=== PATIENT | female | born 1970 | race Caucasian/White ===

== ENCOUNTER → 2020-11-08 | Outpatient (CLI) | payer BC ==
[~2020-11-08] MED LIST: CT SWABBABLE VALVE TRANS SET 1 EA INFUS.SET MC ONE; IOHEXOL-300 100 ML VIAL IV ONE; IV NS 0.9% 250 ML IV ONE
[2020-11-08 11:06] LABS: CREATININE 0.8 mg/dL (0.6-1.3)
== END | disposition home or self-care (01) ==
LOC: CT 10:18
PROVIDERS: ATTEND Family Medicine
DX: N20.2 Calculus of kidney with calculus of ureter (principal); K80.20 Calculus of gallbladder without cholecystitis without obstruction; K57.30 Diverticulosis of large intestine without perforation or abscess without bleeding; K42.9 Umbilical hernia without obstruction or gangrene; R16.0 Hepatomegaly, not elsewhere classified; K76.0 Fatty (change of) liver, not elsewhere classified; M47.819 Spondylosis without myelopathy or radiculopathy, site unspecified
CPT/HCPCS: 36415; 74178; 82565; 84520; J7050; Q9967

== ENCOUNTER 2020-12-30 10:50 | Outpatient (CLI) | payer BC ==
[2020-12-30] MEDS ORDERED: GADOTERATE MEGLUMINE 10 MMOL/20 ML VIAL IV ONE (10:51)
[2020-12-30 12:36] LABS: BASOPHILS % (AUTO) 0.2 % (0.0-2.0); EOSINOPHILS % (AUTO) 2.7 % (0.0-6.0); HEMATOCRIT 43 % (33-45); HEMOGLOBIN 14.4 g/dL (11.5-14.8); LYMPHOCYTES # (AUTO) 3.8 K/uL (0.8-4.8); LYMPHOCYTES % (AUTO) 35.7 % (20.0-44.0); MEAN CORPUSCULAR HGB CONC 34 g/dl (31.0-36.0); MEAN CORPUSCULAR VOLUME 96 fL (82-100); MONOCYTES # (AUTO) 0.8 K/uL (0.1-1.30); MONOCYTES % (AUTO) 7.8 % (2.0-12.0); NEUTROPHILS # (AUTO) 5.7 K/uL (1.8-8.9); NEUTROPHILS % (AUTO) 53.6 % (43.0-81.0); PLATELET COUNT (AUTO) 353 K/uL (150-450); RED BLOOD CELL COUNT(AUTO) 4.48 MIL/uL (4.0-5.2); WHITE BLOOD COUNT (AUTO) 10.6 K/uL (4.3-11.0)
[2020-12-30 12:49] LABS: ALBUMIN 3.7 g/dL (3.4-5.0); BILIRUBIN,TOTAL 0.5 mg/dL (0.2-1.0); CALCIUM, SERUM 8.9 mg/dL (8.5-10.1); CREATININE 0.8 mg/dL (0.6-1.3); POTASSIUM 4.1 mmol/L (3.5-5.1); TOTAL PROTEIN, SERUM 7.4 g/dL (6.4-8.2)
[2020-12-30 12:59] LABS: THYROID STIMULATING HORMONE 7.04 uIU/mL (0.358-3.74)
[2020-12-30 13:13] LABS: BILIRUBIN,URINE NEGATIVE (NEGATIVE); COLOR,URINE YELLOW (YELLOW); LEUKOCYTE ESTERASE ,URINE NEGATIVE (NEGATIVE); NITRITE, URINE NEGATIVE (NEGATIVE); PH,URINE 5.5 (5.0-8.0); PROTEIN,URINE NEGATIVE (NEGATIVE); UGLUCOSE NEGATIVE (NEGATIVE); UROBILINOGEN,URINE 0.2 EU/dL (0.2)
[2020-12-30 13:19] LABS: BACTERIA,URINE Moderate /HPF (None Seen); RBC,URINE 0-2 /HPF (0-2); SQUAMOUS EPITHELIAL CELL,UR Many /HPF (None Seen); WBC,URINE 0-2 /HPF (0-3)
== END 2020-12-30 23:59 | disposition home or self-care (01) ==
LOC: US 10:50
PROVIDERS: ATTEND Family Medicine
DX: I10 Essential (primary) hypertension (principal); E03.9 Hypothyroidism, unspecified; E55.9 Vitamin D deficiency, unspecified; N20.0 Calculus of kidney; K57.30 Diverticulosis of large intestine without perforation or abscess without bleeding; R73.9 Hyperglycemia, unspecified; R59.0 Localized enlarged lymph nodes; D25.0 Submucous leiomyoma of uterus; N85.4 Malposition of uterus
CPT/HCPCS: 72197; 76856; 80053; 80061; 81001; 82306; 83036; 84439; 84443; 85025; A9575; 36415; 87086-TC

== ENCOUNTER 2021-01-07 12:14 | Outpatient (CLI) | payer BC | END 2021-01-07 23:59 | disposition home or self-care (01) | LOC: LAB 12:14 | PROVIDERS: ATTEND Family Medicine | DX: R59.0 Localized enlarged lymph nodes (principal) | CPT/HCPCS: 36415; 82378; 86304 ==

== ENCOUNTER → 2021-09-29 | Outpatient (CLI) | payer BC ==
[2021-09-29 11:37] LABS: BASOPHILS # (AUTO) 0.1 K/uL (0.0-0.2); BASOPHILS % (AUTO) 1.3 % (0.0-2.0); EOSINOPHILS % (AUTO) 2.8 % (0.0-6.0); HEMATOCRIT 44 % (33-45); HEMOGLOBIN 14.7 g/dL (11.5-14.8); LYMPHOCYTES # (AUTO) 3.6 K/uL (0.8-4.8); MEAN CORPUSCULAR HGB CONC 33 g/dl (31.0-36.0); MEAN CORPUSCULAR VOLUME 94 fL (82-100); MONOCYTES # (AUTO) 0.8 K/uL (0.1-1.30); MONOCYTES % (AUTO) 8.6 % (2.0-12.0); NEUTROPHILS # (AUTO) 4.9 K/uL (1.8-8.9); NEUTROPHILS % (AUTO) 50.3 % (43.0-81.0); PLATELET COUNT (AUTO) 349 K/uL (150-450); WHITE BLOOD COUNT (AUTO) 9.7 K/uL (4.3-11.0)
[2021-09-29 12:24] LABS: ALBUMIN 3.4 g/dL (3.4-5.0); BILIRUBIN,TOTAL 0.4 mg/dL (0.2-1.0); CREATININE 0.7 mg/dL (0.6-1.3); POTASSIUM 4.1 mmol/L (3.5-5.1); TOTAL PROTEIN, SERUM 7.2 g/dL (6.4-8.2)
[2021-09-29 14:26] LABS: THYROID STIMULATING HORMONE 3.38 uIU/mL (0.358-3.74); URIC ACID 6.1 mg/dL (2.6-7.2)
== END | disposition home or self-care (01) ==
LOC: LAB 10:53
PROVIDERS: ATTEND Family Medicine
DX: N20.0 Calculus of kidney (principal); E03.9 Hypothyroidism, unspecified; R73.9 Hyperglycemia, unspecified
CPT/HCPCS: 36415; 80053-TC; 80061-TC; 84439-TC; 84443-TC; 84550-TC; 85025-TC

== ENCOUNTER 2021-12-03 09:31 | Outpatient (CLI) | payer BC ==
[2021-12-03 10:17] LABS: BASOPHILS # (AUTO) 0.1 K/uL (0.0-0.2); BASOPHILS % (AUTO) 1.3 % (0.0-2.0); EOSINOPHILS % (AUTO) 2.4 % (0.0-6.0); HEMATOCRIT 43 % (33-45); HEMOGLOBIN 14.3 g/dL (11.5-14.8); LYMPHOCYTES # (AUTO) 3.5 K/uL (0.8-4.8); LYMPHOCYTES % (AUTO) 38.5 % (20.0-44.0); MEAN CORPUSCULAR HGB CONC 33 g/dl (31.0-36.0); MEAN CORPUSCULAR VOLUME 95 fL (82-100); MONOCYTES # (AUTO) 0.6 K/uL (0.1-1.30); NEUTROPHILS # (AUTO) 4.7 K/uL (1.8-8.9); NEUTROPHILS % (AUTO) 50.8 % (43.0-81.0); PLATELET COUNT (AUTO) 379 K/uL (150-450); RED BLOOD CELL COUNT(AUTO) 4.54 MIL/uL (4.0-5.2); WHITE BLOOD COUNT (AUTO) 9.2 K/uL (4.3-11.0)
[2021-12-03 10:25] LABS: BILIRUBIN,URINE NEGATIVE (NEGATIVE); CALCIUM, SERUM 8.8 mg/dL (8.5-10.1); COLOR,URINE YELLOW (YELLOW); CREATININE 0.8 mg/dL (0.6-1.3); LEUKOCYTE ESTERASE ,URINE NEGATIVE (NEGATIVE); NITRITE, URINE NEGATIVE (NEGATIVE); POTASSIUM 3.9 mmol/L (3.5-5.1); PROTEIN,URINE NEGATIVE (NEGATIVE); UGLUCOSE NEGATIVE (NEGATIVE); UROBILINOGEN,URINE 0.2 EU/dL (0.2)
[2021-12-03 10:56] LABS: BACTERIA,URINE None seen /HPF (None Seen); SQUAMOUS EPITHELIAL CELL,UR 0-2 /HPF (None Seen); WBC,URINE 0-2 /HPF (0-3)
== END 2021-12-03 23:59 | disposition home or self-care (01) ==
LOC: RAD 09:31
PROVIDERS: ATTEND Family Medicine
DX: Z01.818 Encounter for other preprocedural examination (principal); R06.09 Other forms of dyspnea
CPT/HCPCS: 36415; 71046; 80048-TC; 81001; 85025-TC; 85730-TC